=== PATIENT | female | born 1980 | race Caucasian/White ===

== ENCOUNTER 2019-11-29 16:09 | Emergency (ER) | payer BC ==
[~2019-11-29] VITALS: Ht 162.6 cm; Wt 104.3 kg
[~2019-11-29 16:09] MED LIST: IBUPROFEN 600600 M1 RECTAL; NORCO 5-325 TA1 EACH PO
[2019-11-29 16:37] LABS: URINE BILIRUBIN NEGATIVE (Negative); URINE BLOOD TRACE (Negative); URINE CLARITY CLEAR; URINE COLOR YELLOW; URINE GLUCOSE-RANDOM NEGATIVE (Negative); URINE KETONES NEGATIVE (Negative); URINE LEUKOCYTES-REFLEX NEGATIVE (Negative); URINE NITRITE-REFLEX NEGATIVE (Negative); URINE PROTEIN NEGATIVE (Negative); URINE SPECIFIC GRAVITY 1.025 (1.005-1.030); URINE UROBILINOGEN 0.2 E.U./dl (0.2-1.0)
[2019-11-29 16:54] LABS: ABSOLUTE BASOPHILS 0.1 thou/uL (0.0-0.2); ABSOLUTE EOSINOPHILS 0.1 thou/uL (0.0-0.7); ABSOLUTE LYMPHOCYTES 1.8 thou/uL (0.8-5.3); ABSOLUTE MONOCYTES 0.5 thou/uL (0.0-1.2); ABSOLUTE NEUTROPHILS 5.5 thou/uL (1.6-8.1); BASOPHILS 0.7 %; HEMATOCRIT 40.1 % (37.0-47.0); HEMOGLOBIN 13.6 gm/dL (12.0-15.0); LYMPHOCYTES 22.6 %; MCH 28.1 pg (26.0-34.0); MCHC 33.8 g/dL (28.0-37.0); MCV 83.1 fL (80.0-100.0); MONOCYTES 6.5 %; NUCLEATED RBCS 0 /100WBC; PLATELET COUNT* 256 thou/uL (150-400); POLYS 69.2 %; RBC 4.83 mil/uL (4.20-5.00); RDW-CV 13.2 % (10.5-14.5)
[2019-11-29 17:02] LABS: CALCIUM 8.7 mg/dL (8.5-10.1); POTASSIUM 3.3 mmol/L (3.5-5.1)
[2019-11-29 17:04] LABS: ALBUMIN 3.9 g/dL (3.4-5.0); TOTAL BILIRUBIN 0.3 mg/dL (<0.1-1.0); TOTAL PROTEIN 7.8 g/dL (6.4-8.2)
[2019-11-29] MEDS ORDERED: HYDROCODON-ACE1 EAC8 PO (21:05)
[2019-11-29 21:12] VITALS: BP 139/76
--- NOTE | 2019-11-30 07:37 | EKG ---
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
== END 2019-11-29 21:13 | disposition still patient (30) ==
LOC: M.ERS 16:09
PROVIDERS: Emergency Medicine Emergency Medical Services
DX: N20.0 Calculus of kidney (principal); R10.31 Right lower quadrant pain; Z90.710 Acquired absence of both cervix and uterus